=== PATIENT | male | born 1995 | race Two or more races ===

== ENCOUNTER 2020-05-29 00:24 | Emergency (ER) | payer MEDICAID ==
[~2020-05-29] VITALS: Ht 177.8 cm; Wt 109.0 kg
[2020-05-29] MEDS ORDERED: LORAZEPAM 2MG/ML CPJ IV STA (01:44)
[2020-05-29] MEDS ORDERED: SODIUM CHLORIDE 0.9% 1,000 ML IV ONE (01:44)
[2020-05-29 04:02] VITALS: BP 132/69
== END 2020-05-29 04:17 | disposition home or self-care (01) ==
LOC: ER 00:24
DX: F12.229 Cannabis dependence with intoxication, unspecified (principal); R00.0 Tachycardia, unspecified
CPT/HCPCS: 93005; 96374; 99283; J2060; J7030